=== PATIENT | male | born 1985 | race Caucasian/White ===

== ENCOUNTER → 2019-03-11 | Outpatient (REF) | payer OTHER, BC | LOC: M SMT 13:39 | PROVIDERS: ATTEND Urology | DX: Z30.2 Encounter for sterilization (principal) ==

== ENCOUNTER → 2019-05-13 | Outpatient (REF) | payer BC, OTHER ==
[2019-05-13 12:55] LABS: SEMEN APPEARANCE OPAQUE (OPAQUE)
[2019-05-13 12:56] LABS: SEMEN VISCOSITY LIQUID (LIQUID); WBC CONCENTRATION <=1 M/ml (<=1 M/ml)
== END ==
LOC: M SMT 12:21
PROVIDERS: ATTEND Urology
DX: Z98.52 Vasectomy status (principal)